=== PATIENT | male | born 1965 | race Caucasian/White ===

== ENCOUNTER 2019-09-03 23:45 | Emergency (ER) | payer OTHER, BC ==
[~2019-09-03] VITALS: Ht 182.9 cm; Wt 88.5 kg
== END 2019-09-04 00:30 | disposition home or self-care (01) ==
LOC: ED 23:45
DX: T15.11XA Foreign body in conjunctival sac, right eye, initial encounter (principal); X58.XXXA Exposure to other specified factors, initial encounter
CPT/HCPCS: 65205; 99283-25